=== PATIENT | female | born 1980 | race Caucasian/White ===

== ENCOUNTER → 2019-08-24 09:06 | Outpatient (BNVA) | payer OTHER, SELFPAY | PROVIDERS: Family Provider Internal Medicine; Visit Provider Obstetrics & Gynecology | DX: N64.52 Nipple discharge (principal); N93.9 Abnormal uterine and vaginal bleeding, unspecified | CPT/HCPCS: 88112; 88305 ==

== ENCOUNTER → 2019-09-04 11:05 | Outpatient (BNVA) | payer OTHER, SELFPAY | PROVIDERS: Family Provider Internal Medicine; Visit Provider Obstetrics & Gynecology | DX: N93.9 Abnormal uterine and vaginal bleeding, unspecified (principal); N83.202 Unspecified ovarian cyst, left side | CPT/HCPCS: 76830 ==

== ENCOUNTER 2019-09-14 11:50 | Outpatient (CLI) | payer OTHER, SELFPAY ==
--- NOTE | 2019-09-14 12:00 | MM_ITS ---
WS: [id number] DIAGNOSTIC BILATERAL DIGITAL MAMMOGRAM WITH CAD Bilateral breast ultrasound, limited HISTORY: Nipple discharge COMPARISON: 12/11/2018 TECHNIQUE: Bilateral craniocaudad, mediolateral oblique, and mediolateral views are submitted. Spot c ompression bilateral CC. Computer aided detection utilized. Breast composition: The breasts are heterogeneously dense, which may obscure small masses. There are no suspicious masses or distortion. No nipple retraction. Ultrasound to follow to better evaluate the subareolar ducts. Bilateral breast ultrasound, limited. RIGHT breast: Soft tissues around the RIGHT nipple are negative. There are no dilated ducts or mass o r shadowing. LEFT breast: There is a dilated duct just posterior to the LEFT nipple. Within this duct is a nodule measuring 8 x 7 x 8 mm. No increased vascularity. This is a homogeneous nodule of low attenuation. MM/[place] [id number] IMPRESSION: BI-RADS: 4A-Suspicious: Low FOLLOW UP: Biopsy Recommended Ultrasound-guided biopsy recommended of the subareolar duct nodule LEFT breast. Papilloma needs to be excluded. Differential includes duct ectasia with debris .
--- NOTE | 2019-09-14 12:45 | US_ITS ---
WS: [id number] DIAGNOSTIC BILATERAL DIGITAL MAMMOGRAM WITH CAD Bilateral breast ultrasound, limited HISTORY: Nipple discharge COMPARISON: 12/11/2018 TECHNIQUE: Bilateral craniocaudad, mediolateral oblique, and mediolateral views are submitted. Spot c ompression bilateral CC. Computer aided detection utilized. Breast composition: The breasts are heterogeneously dense, which may obscure small masses. There are no suspicious masses or distortion. No nipple retraction. Ultrasound to follow to better evaluate the subareolar ducts. Bilateral breast ultrasound, limited. RIGHT breast: Soft tissues around the RIGHT nipple are negative. There are no dilated ducts or mass o r shadowing. LEFT breast: There is a dilated duct just posterior to the LEFT nipple. Within this duct is a nodule measuring 8 x 7 x 8 mm. No increased vascularity. This is a homogeneous nodule of low attenuation. US/US breast BI limited* [id number] IMPRESSION: BI-RADS: 4A-Suspicious: Low FOLLOW UP: Biopsy Recommended Ultrasound-guided biopsy recommended of the subareolar duct nodule LEFT breast. Papilloma needs to be excluded. Differential includes duct ectasia with debris .
== END 2019-09-14 11:51 | disposition home or self-care (01) ==
LOC: RADSHAW 11:52
PROVIDERS: PCP Internal Medicine; Visit Provider Obstetrics & Gynecology
DX: N64.52 Nipple discharge (principal); N63.42 Unspecified lump in left breast, subareolar
CPT/HCPCS: 76642; 77066

== ENCOUNTER 2019-09-22 11:19 | Outpatient (CLI) | payer OTHER, SELFPAY ==
--- NOTE | 2019-09-22 12:45 | US_ITS ---
WS: [id number] ULTRASOUND-GUIDED LEFT BREAST BIOPSY CLINICAL INFORMATION: abnormal mammogram COMPARISON: None. FINDINGS: The procedure including risks, benefits, and complications were discussed with the patient who agreed to proceed. Using sterile technique patient was prepped and draped in the usual sterile fashion. Aft er 1% lidocaine utilizing real-time ultrasound guidance five 14-gauge cores were obtained of the left breast lesion at the nipple. Subsequently a titanium clip was placed in the biopsy cavity. No immedi ate complications. Pathology demonstrates Left breast below nipple, biopsy: Benign breast tissue and focus of benign clotted blood No malignancy identified US/[place] [id number] IMPRESSION: 1. Uncomplicated ultrasound-guided left breast biopsy. 2. The pathology demonstrates benign breast tissue. No malignancy identified. BI-RADS: 2-Benign FOLLOW UP: 6 Month Follow-up RECOMMEND 6 MONTH FOLLOW-UP LEFT DIAGNOSTIC MAMMOGRAM AND ULTRASOUND TO CONFIRM STABILITY.
== END 2019-09-22 11:20 | disposition home or self-care (01) ==
LOC: RAD 11:22
PROVIDERS: PCP Internal Medicine; Visit Provider Obstetrics & Gynecology
DX: R92.8 Other abnormal and inconclusive findings on diagnostic imaging of breast (principal)
CPT/HCPCS: 19083; 88305

== ENCOUNTER → 2019-11-10 11:03 | Outpatient (BNVA) | payer OTHER, SELFPAY | PROVIDERS: PCP Internal Medicine; Visit Provider Obstetrics & Gynecology | DX: N93.9 Abnormal uterine and vaginal bleeding, unspecified (principal) | CPT/HCPCS: 81025 ==

== ENCOUNTER 2020-07-01 11:55 | Outpatient (CLI) | payer OTHER, SELFPAY ==
--- NOTE | 2020-07-01 12:00 | MM_ITS ---
WS: [id number] DIAGNOSTIC LEFT DIGITAL MAMMOGRAM WITH CAD LEFT breast ultrasound, limited HISTORY: R92.8 - Other abnormal and inconclusive findings on diagnostic imaging of breast COMPARISON: 09/14/2019 and 12/11/2018 Technique: CC, MLO and ML views. Spot compression LEFT CC. Breast composition: The breasts are heterogeneously dense, which may obscure small masses. Biopsy cl ip posterior to the nipple. No interval change. No nipple retraction or increasing soft tissue mass. LEFT breast ultrasound, limited. Soft tissue mass posterior to the nipple is again identified. This soft tissue nodule measuring 9 x 7 x 8 mm. There is a biopsy clip noted. Nodule has increased in size since the prior study. MM/[place] [id number] IMPRESSION: BI-RADS: 4-Suspicious Finding-Biopsy Should Be Considered FOLLOW UP: Surgical Biopsy Recommended Slight increased size of the nodule in the LEFT subareolar location since the p rior ultrasound. Biopsy demonstrated benign breast tissue. This does not appear to be normal benign breast tissue. Consider surgical removal.
--- NOTE | 2020-07-01 12:45 | US_ITS ---
WS: [id number] DIAGNOSTIC LEFT DIGITAL MAMMOGRAM WITH CAD LEFT breast ultrasound, limited HISTORY: R92.8 - Other abnormal and inconclusive findings on diagnostic imaging of breast COMPARISON: 09/14/2019 and 12/11/2018 Technique: CC, MLO and ML views. Spot compression LEFT CC. Breast composition: The breasts are heterogeneously dense, which may obscure small masses. Biopsy cl ip posterior to the nipple. No interval change. No nipple retraction or increasing soft tissue mass. LEFT breast ultrasound, limited. Soft tissue mass posterior to the nipple is again identified. This soft tissue nodule measuring 9 x 7 x 8 mm. There is a biopsy clip noted. Nodule has increased in size since the prior study. US/US breast LT limited* [id number] IMPRESSION: BI-RADS: 4-Suspicious Finding-Biopsy Should Be Considered FOLLOW UP: Surgical Biopsy Recommended Slight increased size of the nodule in the LEFT subareolar location since the p rior ultrasound. Biopsy demonstrated benign breast tissue. This does not appear to be normal benign breast tissue. Consider surgical removal.
== END 2020-07-01 11:56 | disposition home or self-care (01) ==
LOC: RADSHAW 11:58
PROVIDERS: PCP Internal Medicine; Visit Provider Obstetrics & Gynecology
DX: R92.8 Other abnormal and inconclusive findings on diagnostic imaging of breast (principal); N63.42 Unspecified lump in left breast, subareolar
CPT/HCPCS: 76642; 77065

== ENCOUNTER → 2021-04-14 11:57 | Outpatient (BNVA) | payer OTHER, SELFPAY | PROVIDERS: PCP Internal Medicine; Visit Provider Nurse Practitioner Family | DX: Z20.822 Contact with and (suspected) exposure to COVID-19 (principal) | CPT/HCPCS: 87635 ==